=== PATIENT | male | born 1980 | race African-American/Black ===

== ENCOUNTER 2021-03-02 12:59 | Emergency (ER) | payer BC, SELFPAY ==
[2021-03-02 13:17] VITALS: BP 156/88; PULSE 86; RESP 16; TEMP 36.4; O2SAT 100
--- NOTE | 2021-03-02 13:58 | ED.EAR ---
HPI - Ear Problem General Chief complaint: Ear Stated complaint: ear pain Time Seen by Provider: 03/02/21 13:55 Source: patient Mode of arrival: ambulatory Limitations: no limitations History of Present Illness HPI Narrative: Chele Roe natalie 40 yo male with no known medical condition who comes to [facility] with left ear pain and drainage he states he started in the last couple days his ear canal appears tight and it is there is visible drainage on the left side; blood pressure is elevated at this visit but he sees his primary care doctor regularly and he was sent for labs that he missed because of work; states states he is not aware of having elevated blood pressure normally Related Data Allergies Allergy/AdvReac Type Severity Reaction Status Date / Time No Known Allergies Allergy Verified 03/02/21 14:06 Review of Systems Review of Systems: CONSTITUTIONAL: Denies fever, chills, sweats. EYES: Denies visual changes, redness, discharge. ENT: Denies rhinorrhea, congestion, sore throat, has left otalgia. CARDIOVASCULAR: Denies chest pain, palpitations, edema. RESPIRATORY: Denies dyspnea, wheezing, cough GASTROINTESTINAL: Denies abdominal pain, nausea, vomiting, diarrhea. GENITOURINARY: Denies dysuria, hematuria, abnormal discharge SKIN: Denies rash or itching. NEUROLOGIC: Denies numbness, or focal weakness. PSYCHIATRIC: Denies anxiety or depression. [facility] Past Medical History Medical History No acute medical problems Social History Social History (Updated 03/02/21 @ 14:06 by Conchita Adam CNP) Smoking status: Never smoker Alcohol intake: current Alcohol use details: Rare use Comments At time of signature, I agree with nursing past medical, surgical, social and family history. There is no relevant family history pertinent to the presenting complaint. Patient's blood pressure elevated at this visit although he denies having any high blood pressure. Has a PCP he sees regularly and will follow up with him Exam Narrative: GENERAL: This is a well-nourished, well-developed patient, in mild distress. HEAD: normocephalic, atraumatic. EYES: PERRL. Sclera clear/white. Vision is grossly intact. EARS: External ears normal, left auditory canals draining and swollen, right without drainage, TMs normal without perforation. Hearing grossly intact. NOSE: External nose normal without nasal discharge, nares without redness, no rhinorrhea. THROAT: Mucous membranes moist,x NECK: Neck supple, non-tender CARDIOVASCULAR: Regular rate and rhythm without murmurs, gallops, or rubs. RESPIRATORY: Clear to auscultation. Breath sounds equal bilaterally. No wheezes, rales, or rhonchi. GASTROINTESTINAL: Abdomen soft,, SKIN: warm, intact with no suspicious lesions or rash, good texture and turgor. NEURO: awake, alert, and oriented to person, place and time. There were no obvious focal neurologic abnormalities. Steady gait EXTREMITIES: Normal range of motion. BACK: Nontender without deformity Course Course Emergency Course: Patient here with complaints of left ear pain Ear is draining and edematous Started on amoxicillin and polymyxin eardrops Vital Signs Vital signs: Vital Signs Temperature 97.6 F 03/02/21 13:17 Pulse Rate 86 03/02/21 13:17 Respiratory Rate 16 03/02/21 13:17 Blood Pressure 156/88 H 03/02/21 13:17 Pulse Oximetry 100 03/02/21 13:17 Temperature 97.6 F 03/02/21 13:17 Pulse Rate 86 03/02/21 13:17 Respiratory Rate 16 03/02/21 13:17 Blood Pressure 156/88 H 03/02/21 13:17 Pulse Oximetry 100 03/02/21 13:17 Medical Decision Making Differential Diagnosis Differential Diagnosis: Otitis media versus otitis externa versus eustachian tube dysfunction versus pharyngitis Vital Signs Vital Signs: Vital Signs Temperature 97.6 F 03/02/21 13:17 Pulse Rate 86 03/02/21 13:17 Respiratory Rate 16 03/02/21 13:17 Blood Pressu
== END 2021-03-02 14:12 | disposition home or self-care (01) ==
PROVIDERS: Emergency Provider Nurse Practitioner
DX: H60.312 Diffuse otitis externa, left ear (principal)
CPT/HCPCS: 99203; G0463